=== PATIENT | male | born 1995 | race Caucasian/White ===

== ENCOUNTER 2016-08-10 07:41 | Emergency (ER) | payer OTHER ==
[2016-08-10 07:50] VITALS: BP 154/95
--- NOTE | 2016-08-10 08:20 | ED ---
GI/ HPI - HPI Summary HPI Summary: Pt here w/ rectal bleeding. Noticed this morning after having a loose stool and wiped - BRB on toilet paper and a little in the toilet. No active bleeding at this time. Non-painful. Denies fever, chills, N/V, ab pain. Has intermittent GERD (once a month or less and triggered by certain foods - no meds, just waits for it to go away - no sx today). Ate [employer] [place] last night - no other new foods , meds, etc. No h/o rectal bleeding, hemorrhoids, constipation, diarrhea, IBD, ab surgery. Has hypothyroidism and started levothyroxine 6 weeks ago - no physical changes since starting. Was tested for this d/t depression. Also take sertraline and lisinopril. 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 - mom Pain Intensity: 0 <Blanca Peoples - Last Filed: 08/10/16 11:31> <Wendy Benitez - Last Filed: 08/16/16 10:40> - History of Current Complaint Chief Complaint: EDGIBleed Time Seen by Provider: 08/10/16 07:52 Stated Complaint: BLOOD IN STOOL - Allergy/Home Medications Allergies/Adverse Reactions: Allergies Allergy/AdvReac Type Severity Reaction Status Date / Time No Known Allergies Allergy Verified 08/10/16 07:45 PMH/Surg Hx/FS Hx/Imm Hx Previously Healthy: Yes Endocrine/Hematology History: Reports: Hx Thyroid Disease Denies: Hx Anticoagulant Therapy, Hx Blood Disorders, Hx Anemia, Hx Unexplained Bleeding GI History: Reports: Hx Gastroesophageal Reflux Disease - 1 x month or less - triggered by foods - no meds Denies: Hx Crohn's Disease, Hx Diverticulosis, Hx Gall Bladder Disease, Hx Gastrointestinal Bleed, Hx Irritable Bowel, Hx Ulcer Psychiatric History: Reports: Hx Depression Infectious Disease History: No Infectious Disease History: Denies: Hx Clostridium Difficile, Hx Hepatitis, Traveled Outside the [place] in Last 30 Days - Family History Known Family History: Positive: None - Social History Occupation: Unemployed Lives: With Family Alcohol Use: None Hx Substance Use: No Substance Use Type: Reports: None Hx Tobacco Use: No Smoking Status (MU): Never Smoked Tobacco <Blanca Peoples - Last Filed: 08/10/16 11:31> Review of Systems Constitutional: Negative Negative: Chest Pain Negative: Shortness Of Breath, Cough Gastrointestinal: Other - see HPI Positive: no symptoms reported Musculoskeletal: Negative Negative: Bruising Neurological: Negative Positive: Anxious - does not want a rectal exam All Other Systems Reviewed And Are Negative: Yes <Blanca Peoples - Last Filed: 08/10/16 11:31> Physical Exam Triage Information Reviewed: Yes Vital Signs On Initial Exam: Initial Vitals Temp Pulse Resp BP Pulse Ox 97.1 F 98 16 154/95 99 08/10/16 07:45 08/10/16 07:45 08/10/16 07:45 08/10/16 07:45 08/10/16 07:45 Vital Signs Reviewed: Yes Appearance: Positive: Well-Appearing, No Pain Distress, Obese Skin: Positive: Warm, Dry - pt declines wearing a gown for better exam of skin Head/Face: Positive: Normal Head/Face Inspection Eyes: Positive: Normal, EOMI, Conjunctiva Clear, Other: - no exophthalmos ENT: Positive: Hearing grossly normal, Pharynx normal Neck: Positive: Other: - no gross thyromegaly Respiratory/Lung Sounds: Positive: Clear to Auscultation, Breath Sounds Present. Negative: Rales, Rhonchi, Wheezes Cardiovascular: Positive: Normal, RRR Abdomen Description: Positive: Nontender, No Organomegaly, Soft, Other: - pt declines rectal exam - explained risks of not having this test - pt nad mom voice understanding. Agrees to provide stool sample in place of [facility] if he has the urge to move his bowels while here Bowel Sounds: Positive: Present Musculoskeletal: Positive: Normal, Strength/ROM Intact Neurological: Positive: Normal, Sensory/Motor Intact, Alert, Oriented to Person Place, Time, CN Intact II-III Psychiatric: Positive: Other - gaurded, defensive, shy. poor eye contact <Blanca Peoples - Last Filed: 08/10/16 11:31> Vital Signs On Initial Exam: Initial Vitals Temp Pulse Resp BP Pulse Ox 97.1 F 98 16 154/95 99 08/10/16 07:45 08/10/16 07:45 08/10/16 07:45 08/10/16 07:45 08/10/16 07:45 <Wendy Benitez - Last Filed: 08/16/16 10:40> Diagnostics - Vital Signs Vital Signs Temp Pulse Resp BP Pulse Ox 08/10/16 07:45 97.1 F 98 16 154/95 99 - Laboratory Result Diagrams: 08/10/16 08:20 08/10/16 08:20 Lab Statement: Any lab studies that have been ordered have been reviewed, and results considered in the medical decision making process. <Blanca Peoples - Last Filed: 08/10/16 11:31> - Vital Signs Vital Signs Temp Pulse Resp BP Pulse Ox 08/10/16 07:45 97.1 F 98 16 154/95 99 - Laboratory Lab Results: Lab Results 08/10/16 08/10/16 08/10/16 Range/Units 08:20 08:20 08:20 WBC (3.5-10.8) 10^3/ul RBC (4.0-5.4) 10^6/ul Hgb (14.0-18.0) g/dl Hct (42-52) % MCV (80-94) fL MCH (27-31) pg MCHC (31-36) g/dl RDW (10.5-15) % Plt Count (150-450) 10^3/ul MPV (7.4-10.4) um3 Neut % (Auto) (38-83) % Lymph % (Auto) (25-47) % [place] % (Auto) (1-9) % Eos % (Auto) (0-6) % Baso % (Auto) (0-2) % Absolute Neuts (auto) (1.5-7.7) 10^3/ul Absolute Lymphs (auto) (1.0-4.8) 10^3/ul Absolute Monos (auto) (0-0.8) 10^3/ul Absolute Eos (auto) (0-0.6) 10^3/ul Absolute Basos (auto) (0-0.2) 10^3/ul Absolute Nucleated RBC 10^3/ul Nucleated RBC % INR (Anticoag Therapy) 0.92 (0.89-1.11) APTT 32.5 (26.0-36.3) seconds Sodium 133 (133-145) mmol/L Potassium 4.4 (3.5-5.0) mmol/L Chloride 101 (101-111) mmol/L Carbon Dioxide 21 L (22-32) mmol/L Anion Gap 11 (2-11) mmol/L BUN 20 (6-24) mg/dL Creatinine 1.35 H (0.67-1.17) mg/dL Est GFR ( Amer) 85.0 (>60) Est GFR (Non-Af Amer) 66.1 (>60) BUN/Creatinine Ratio 14.8 (8-20) Glucose 103 H (70-100) mg/dL Lactic Acid 1.2 (0.5-2.0) mmol/L Calcium 9.9 (8.6-10.3) mg/dL Total Bilirubin 0.40 (0.2-1.0) mg/dL AST 56 H (13-39) U/L ALT 135 H (7-52) U/L Alkaline Phosphatase 80 (34-104) U/L C-Reactive Protein 1.87 (< 5.00) mg/L Total Protein 7.6 (6.4-8.9) g/dL Albumin 4.7 (3.2-5.2) g/dL Globulin 2.9 (2-4) g/dL Albumin/Globulin Ratio 1.6 (1-3) Lipase 30 (11.0-82.0) U/L TSH 1.64 (0.34-5.60) mcIU/mL Free T4 0.86 (0.61-1.12) ng/dL Hepatitis A IgM Ab (Nonreactive) Hep Bs Antigen (Nonreactive) Hep B Core IgM Ab (Nonreactive) Hepatitis C Antibody (Nonreactive) Monoscreen (Negative) 08/10/16 08/10/16 08/10/16 Range/Units 08:20 08:20 08:20 WBC 5.9 (3.5-10.8) 10^3/ul RBC 5.43 H (4.0-5.4) 10^6/ul Hgb 17.0 (14.0-18.0) g/dl Hct 49 (42-52) % MCV 91 (80-94) fL MCH 31 (27-31) pg MCHC 34 (31-36) g/dl RDW 13 (10.5-15) % Plt Count 242 (150-450) 10^3/ul MPV 9 (7.4-10.4) um3 Neut % (Auto) 53.1 (38-83) % Lymph % (Auto) 35.7 (25-47) % [place] % (Auto) 8.7 (1-9) % Eos % (Auto) 1.6 (0-6) % Baso % (Auto) 0.9 (0-2) % Absolute Neuts (auto) 3.1 (1.5-7.7) 10^3/ul Absolute Lymphs (auto) 2.1 (1.0-4.8) 10^3/ul Absolute Monos (auto) 0.5 (0-0.8) 10^3/ul Absolute Eos (auto) 0.1 (0-0.6) 10^3/ul Absolute Basos (auto) 0.1 (0-0.2) 10^3/ul Absolute Nucleated RBC 0.01 10^3/ul Nucleated RBC % 0.2 INR (Anticoag Therapy) (0.89-1.11) APTT (26.0-36.3) seconds Sodium (133-145) mmol/L Potassium (3.5-5.0) mmol/L Chloride (101-111) mmol/L Carbon Dioxide (22-32) mmol/L Anion Gap (2-11) mmol/L BUN (6-24) mg/dL Creatinine (0.67-1.17) mg/dL Est GFR ( Amer) (>60) Est GFR (Non-Af Amer) (>60) BUN/Creatinine Ratio (8-20) Glucose (70-100) mg/dL Lactic Acid (0.5-2.0) mmol/L Calcium (8.6-10.3) mg/dL Total Bilirubin (0.2-1.0) mg/dL AST (13-39) U/L ALT (7-52) U/L Alkaline Phosphatase (34-104) U/L C-Reactive Protein (< 5.00) mg/L Total Protein (6.4-8.9) g/dL Albumin (3.2-5.2) g/dL Globulin (2-4) g/dL Albumin/Globulin Ratio (1-3) Lipase (11.0-82.0) U/L TSH (0.34-5.60) mcIU/mL Free T4 (0.61-1.12) ng/dL Hepatitis A IgM Ab Nonreactive (Nonreactive) Hep Bs Antigen Nonreactive (Nonreactive) Hep B Core IgM Ab Nonreactive (Nonreactive) Hepatitis C Antibody Nonreactive (Nonreactive) Monoscreen Negative (Negative) Result Diagrams: 08/10/16 08:20 08/10/16 08:20 Lab Statement: Any lab studies that have been ordered have been reviewed, and results considered in the medical decision making process. <Wendy Benitez - Last Filed: 08/16/16 10:40> GIGU Course/Dx <Blanca Peoples - Last Filed: 08/10/16 11:31> <Wendy Benitez - Last Filed: 08/16/16 10:40> - Diagnoses Provider Diagnoses: Rectal bleed, LFT elevation, Fatty liver, Hepatomegaly Discharge <Blanca Peoples - Last Filed: 08/10/16 11:31> <Wendy Benitez - Last Filed: 08/16/16 10:40> - Discharge Plan Condition: Stable Disposition: HOME Patient Education Materials: Non-Alcoholic Fatty Liver Disease (ED), Rectal Bleeding (ED) Referrals: Curry Grimaldo MD [Primary Care Provider] - Additional Instructions: You presented with a complaint of rectal bleeding. You declined a digital rectal exam however your stool test was negative for blood. Your red blood cells are within normal limits and your vital signs are normal so we are sending home. Without visualizing the area of concern, there are a few diagnoses we cannot rule out. If you decide to have this exam, you may request it at your PCP's office or return to ED. It is also advised that any patient with rectal bleeding should consider evaluation with a colonoscopy to asses for cancer. This may be discussed with your PCP as well. Other findings today include elevated liver enzymes. They are slightly worse from previous exam in April. Your liver also appears to be mildly enlarged and with a fatty infiltrate. After looking at cholesterol labs from your PCP, it is revealed that you have elevated triglycerides and a low HDL. This may be further discussed with your PCP. Additional labs were added today to further asses for cause of liver enlargement including mono and hepatitis. You do not appear to have an obstruction or inflammation on ultrasound and are without symptoms of vomiting or abdominal pain. You also reported eating well. If this changes, return to ED. Other possible causes for elevated liver enzymes could be medication - inquire with your PCP. Follow-up with your PCP this week. Call Friday to schedule an appointment. *If you develop fever, chills, chest pain, shortness of breath, return of rectal bleeding, increased heart, dizziness or fatigue, return to ED Attestations Scribe Attestation: I was available for consult. This patient was seen by the advanced practice provider. The patient was not presented to, seen by, or examined by me. User Type: Provider <Wendy Benitez - Last Filed: 08/16/16 10:40>
[2016-08-10 08:43] LABS: C Reactive Protein 1.87 mg/L (< 5.00)
[2016-08-10 08:57] LABS: Hematocrit 49 % (42-52); Mean Corpuscular HGB Conc 34 g/dl (31-36); Mean Corpuscular Hemoglobin 31 pg (27-31); Mean Corpuscular Volume 91 fL (80-94); Mean Platelet Volume 9 um3 (7.4-10.4); Red Blood Count 5.43 10^6/ul (4.0-5.4); Red Cell Distribution Width 13 % (10.5-15); White Blood Count 5.9 10^3/ul (3.5-10.8)
[2016-08-10 09:13] LABS: Albumin 4.7 g/dL (3.2-5.2); BUN/Creatinine Ratio 14.8 (8-20); Calcium 9.9 mg/dL (8.6-10.3); EGFR Non-African American 66.1 (>60); Globulin 2.9 g/dL (2-4); Total Bilirubin 0.4 mg/dL (0.2-1.0); Total Protein 7.6 g/dL (6.4-8.9)
[2016-08-10 09:32] LABS: Potassium 4.4 mmol/L (3.5-5.0)
[2016-08-10 09:59] LABS: TSH (Thyroid Stimulating Horm) 1.64 mcIU/mL (0.34-5.60)
[2016-08-10 10:06] LABS: Free T4 0.86 ng/dL (0.61-1.12)
--- NOTE | 2016-08-10 11:16 | RAD ---
HISTORY: Elevated LFTs, rectal bleeding COMPARISONS: None TECHNIQUE: Multiple transverse and longitudinal ultrasound images were obtained of the right upper quadrant of the abdomen using grayscale and color Doppler imaging. FINDINGS: LIVER: The liver is diffusely echogenic and coarse in echotexture, with decreased acoustic transmission. The liver is mildly enlarged measuring 19.1 cm.. There is normal hepatopedal flow of the portal vein on Doppler imaging. BILIARY TREE: There is no intrahepatic or extrahepatic biliary dilatation. The common duct measures 0.4 cm. GALLBLADDER: The gallbladder is well-visualized. There is no cholelithiasis, gallbladder wall thickening, pericholecystic fluid, or sonographic López sign. PANCREAS: The pancreas is obscured by overlying bowel gas. RIGHT KIDNEY: The right kidney is normal in shape, size, contour, and echogenicity. There is no hydronephrosis or nephrolithiasis. The right kidney measures 10.8 x 6.1 x 5.5 cm. AORTA AND IVC: The aorta and IVC are unremarkable. FLUID: There are no pleural effusions. There is no free fluid within the hepatorenal recess. OTHER FINDINGS: None. IMPRESSION: MILD HEPATOMEGALY WITH FATTY INFILTRATION OF THE LIVER
[2016-08-10 11:28] LABS: Manual Entry Verification HAN0055
[2016-08-10 11:34] LABS: Mono Internal Control QC Line Present
== END 2016-08-10 12:02 | disposition home or self-care (01) ==
LOC: ED 07:41
DX: K62.5 Hemorrhage of anus and rectum (principal); R94.5 Abnormal results of liver function studies; K76.0 Fatty (change of) liver, not elsewhere classified; R16.0 Hepatomegaly, not elsewhere classified; F32.9 Major depressive disorder, single episode, unspecified; E07.9 Disorder of thyroid, unspecified
CPT/HCPCS: 36415; 76705; 80053; 80074; 82272; 83605; 83690; 84439; 84443; 85025; 85610; 85730; 86140; 86308; 99283

== ENCOUNTER 2016-08-31 16:56 | Emergency (ER) | payer OTHER ==
[2016-08-31] MEDS ORDERED: Ondansetron INJ* 2 MG/ML VIAL IV ONE (19:32)
[2016-08-31] MEDS ORDERED: NS 0.9% 1000 ML* 1,000 ML IV ONE (19:32)
[2016-08-31 20:23] LABS: Hematocrit 47 % (42-52); Hemoglobin 15.8 g/dl (14.0-18.0); Mean Corpuscular HGB Conc 34 g/dl (31-36); Mean Corpuscular Hemoglobin 31 pg (27-31); Mean Corpuscular Volume 91 fL (80-94); Mean Platelet Volume 9 um3 (7.4-10.4); Red Blood Count 5.17 10^6/ul (4.0-5.4); Red Cell Distribution Width 14 % (10.5-15); White Blood Count 12.6 10^3/ul (3.5-10.8)
[2016-08-31 20:24] LABS: Add Diff/Slide Review? Slide Review Added; Comments Flag Yes
[2016-08-31] MEDS: Morphine INJ* 2 MG/ML 1 ML CARPUJECT IV ONE ×2 (20:31→21:05)
--- NOTE | 2016-08-31 20:37 | ED ---
Katie Ng Janilya, scribed for Maulik Solorio MD on 08/31/16 at 1927 . Abdominal Pain/Male - HPI Summary HPI Summary: A 21 y/o male came in to [facility] presenting w/ a gradual onset of constant RLQ abd pain starting today at 1400 when he woke up. Pt reports he felt normal before he went to sleep a few hours before his nap. Pain has not changed in character or location since the onset. Pt denies fever, n/v/d. He states that he did not take any medication for the pain. And he has not eaten anything since breakfast. Pt has not experienced these symptoms before. - History of Current Complaint Chief Complaint: EDAbdPain Stated Complaint: LOWER RT ABD PAIN Time Seen by Provider: 08/31/16 19:16 Hx Obtained From: Patient Onset/Duration: Gradual Onset, Lasting Hours, Still Present Timing: Constant Severity Initially: Moderate Severity Currently: Moderate Pain Intensity: 2 Pain Scale Used: 0-10 Numeric Location: Discrete At: RLQ Character: Dull Aggravating Factor(s): Nothing Alleviating Factor(s): Nothing Associated Signs And Symptoms: Negative: Fever, Nausea, Vomiting, Diarrhea - Allergies/Home Medications Allergies/Adverse Reactions: Allergies Allergy/AdvReac Type Severity Reaction Status Date / Time No Known Allergies Allergy Verified 08/31/16 17:00 PMH/Surg Hx/FS Hx/Imm Hx Endocrine/Hematology History: Reports: Hx Thyroid Disease Denies: Hx Anticoagulant Therapy, Hx Blood Disorders, Hx Anemia, Hx Unexplained Bleeding GI History: Reports: Hx Gastroesophageal Reflux Disease - 1 x month or less - triggered by foods - no meds Denies: Hx Crohn's Disease, Hx Diverticulosis, Hx Gall Bladder Disease, Hx Gastrointestinal Bleed, Hx Irritable Bowel, Hx Ulcer Psychiatric History: Reports: Hx Depression Infectious Disease History: No Infectious Disease History: Denies: Hx Clostridium Difficile, Hx Hepatitis, Traveled Outside the [place] in Last 30 Days - Family History Known Family History: Positive: Hypertension Negative: Diabetes - Social History Occupation: Student Alcohol Use: None Hx Substance Use: No Substance Use Type: Reports: None Hx Tobacco Use: No Smoking Status (MU): Never Smoked Tobacco Review of Systems Negative: Fever Positive: Abdominal Pain - RLQ. Negative: Vomiting, Diarrhea, Nausea All Other Systems Reviewed And Are Negative: Yes Physical Exam Triage Information Reviewed: Yes Vital Signs On Initial Exam: Initial Vitals Temp Pulse Resp BP Pulse Ox 98.3 F 108 16 151/96 97 08/31/16 17:00 08/31/16 17:00 08/31/16 17:00 08/31/16 17:00 08/31/16 17:00 Vital Signs Reviewed: Yes Appearance: Positive: Well-Appearing, Pain Distress - mildly uncomfortable Skin: Positive: Warm Eyes: Positive: ORACIO ENT: Positive: Hearing grossly normal Neck: Positive: Supple Respiratory/Lung Sounds: Positive: Clear to Auscultation, Breath Sounds Present Cardiovascular: Positive: RRR Abdomen Description: Positive: No Organomegaly, Soft, [place] Tenderness - mild. Negative: CVA Tenderness (R), CVA Tenderness (L) Bowel Sounds: Positive: Present Musculoskeletal: Positive: Strength/ROM Intact Neurological: Positive: Sensory/Motor Intact, Alert, Oriented to Person Place, Time, Normal Gait Psychiatric: Positive: Normal Diagnostics - Vital Signs Vital Signs Temp Pulse Resp BP Pulse Ox 08/31/16 18:10 98.3 F 97 16 135/87 100 08/31/16 17:00 98.3 F 108 16 151/96 97 - Laboratory Lab Results: Lab Results 08/31/16 Range/Units 20:10 WBC 12.6 H (3.5-10.8) 10^3/ul RBC 5.17 (4.0-5.4) 10^6/ul Hgb 15.8 (14.0-18.0) g/dl Hct 47 (42-52) % MCV 91 (80-94) fL MCH 31 (27-31) pg MCHC 34 (31-36) g/dl RDW 14 (10.5-15) % Plt Count 182 (150-450) 10^3/ul MPV 9 (7.4-10.4) um3 Neut % (Auto) 86.3 H (38-83) % Lymph % (Auto) 6.0 L (25-47) % [place] % (Auto) 6.2 (1-9) % Eos % (Auto) 0.4 (0-6) % Baso % (Auto) 1.1 (0-2) % Absolute Neuts (auto) 10.9 H (1.5-7.7) 10^3/ul Absolute Lymphs (auto) 0.8 L (1.0-4.8) 10^3/ul Absolute Monos (auto) 0.8 (0-0.8) 10^3/ul Absolute Eos (auto) 0 (0-0.6) 10^3/ul Absolute Basos (auto) 0.1 (0-0.2) 10^3/ul Absolute Nucleated RBC 0.01 10^3/ul Nucleated RBC % 0.1 Result Diagrams: 08/31/16 20:10 08/31/16 20:10 Lab Statement: Any lab studies that have been ordered have been reviewed, and results considered in the medical decision making process. - CT abd/pel CT Interpretation: Positive (See Comments) - IMPRESSION: HEPATIC STEATOSIS WITH AREAS OF FOCAL FATTY SPARING.. NO EVIDENCE OF APPENDICITIS IS NOTED. SCATTERED MESENTERIC LYMPH NODES ARE NOTED IN THE LOWER RIGHT LOWER QUADRANT. DIFFUSE WALL THICKENING OF THE URINARY BLADDER. THE POSSIBILITY OF CYSTITIS SHOULD BE CONSIDERED. NO DEFINITE FLUID COLLECTIONS ARE NOTED. CT Interpretation Completed By: Radiologist Abdominal Pain Fem Course/Dx - Diagnoses Provider Diagnoses: Mesenteric adenitis Discharge - Discharge Plan Condition: Stable Disposition: HOME Patient Education Materials: Mesenteric Adenitis (ED) Referrals: Curry Grimaldo MD [Primary Care Provider] - 1 Week Additional Instructions: Follow up with your primary care provider. The documentation as recorded by the Katie cedillo Janilya accurately reflects the service I personally performed and the decisions made by , Maulik Solorio MD.
[2016-08-31 20:39] LABS: Albumin 4.8 g/dL (3.2-5.2); BUN/Creatinine Ratio 11.4 (8-20); C Reactive Protein 6.32 mg/L (< 5.00); EGFR African American 103.3 (>60); EGFR Non-African American 80.3 (>60); Globulin 2.9 g/dL (2-4); Potassium 4.3 mmol/L (3.5-5.0); Total Bilirubin 0.7 mg/dL (0.2-1.0); Total Protein 7.7 g/dL (6.4-8.9)
[2016-08-31 20:45] LABS: Immature Granulocytes 8 % (0-9); Neutrophil % 73 % (38-83); RBC Morphology Normal (Normal); Reactive Lymph % 7 % (0-6)
[2016-08-31] MEDS ORDERED: Iohexol 300* (CONTRAST) 10 ML SDV IV ONE (20:53)
[2016-08-31 21:29] LABS: Urine Bacteria Absent (Absent); Urine Bilirubin Negative (Negative); Urine Glucose Negative (Negative); Urine Nitrite Negative (Negative)
--- NOTE | 2016-08-31 22:34 | RAD ---
Indication: Right lower quadrant pain. CT of the abdomen and pelvis was performed after oral and IV contrast administration. Coronal and sagittal reconstructed images were obtained. A total of Administered 150.0 ml of Contrast Omnipaque 300 mgi/ml2 was administered intravenously. Lung bases demonstrate no pleural fluid, nodules or masses. Heart is of normal size without evidence of pericardial effusion. The liver is normal in size. It is diffusely decreased in density consistent with hepatic steatosis. Areas of focal fatty sparing are noted near the celina hepatis in the right lobe as well as in the left lobe adjacent to the gallbladder fossa. Gallbladder demonstrates no calcific gallstones. No pericholecystic fluid or wall thickening is noted. Pancreas demonstrates no mass or pancreatic duct dilatation. The spleen is normal in size. No adrenal lesions are noted. The kidneys demonstrates symmetric nephrograms without obstruction. No hydronephrosis is noted. No retroperitoneal lymphadenopathy is noted. No pelvic adenopathy is noted. Aorta and inferior vena cava are unremarkable. Small bowel demonstrates no abnormal dilatation with contrast in the colon. The appendix is visualized and is normal. No focal wall thickening is identified. Scattered mesenteric lymph nodes are noted measuring up to 3 to 5 mm in the right lower quadrant. The urinary bladder demonstrates diffuse wall thickening. The possibility of cystitis should be considered. No hernias are noted. No free fluid is identified. 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 NO EVIDENCE OF APPENDICITIS IS NOTED. SCATTERED MESENTERIC LYMPH NODES ARE NOTED IN THE LOWER RIGHT LOWER QUADRANT. DIFFUSE WALL THICKENING OF THE URINARY BLADDER. THE POSSIBILITY OF CYSTITIS SHOULD BE CONSIDERED. NO DEFINITE FLUID COLLECTIONS ARE NOTED.
[2016-08-31 23:12] VITALS: BP 137/70
== END 2016-08-31 23:12 | disposition home or self-care (01) ==
LOC: ED 16:56
DX: I88.0 Nonspecific mesenteric lymphadenitis (principal); R10.31 Right lower quadrant pain; N28.89 Other specified disorders of kidney and ureter
CPT/HCPCS: 36415; 74177; 80053; 81003; 81015; 83605; 83735; 85025; 86140; 96374; 96375; 99283; J2270; J2405; Q9967